=== PATIENT | female | born 1985 | race Caucasian/White ===

== ENCOUNTER 2017-07-22 06:53 | Inpatient (IN) | payer OTHER ==
[~2017-07-22] VITALS: Ht 152.4 cm; Wt 63.5 kg
[2017-07-22] MEDS ORDERED: PNV1TABL8 PO (07:42)
[2017-07-22] MEDS ORDERED: PREN-546 PO (07:42)
[2017-07-22] MEDS ORDERED: CALC-577 PO (07:42)
[2017-07-22 07:45] VITALS: BP 109/76
[2017-07-22] MEDS ORDERED: LACTATED RINGERS 1,000 ML IV SCH (07:59)
[2017-07-22] MEDS ORDERED: CITRIC ACID/SODIUM CITRATE 30 ML UDC PO SCH (08:00)
--- NOTE | 2017-07-22 09:09 | NUR ---
PATIENT HAS BEEN SCREENED AND CATEGORIZED LOW NUTRITION RISK. PATIENT WILL BE SEEN WITHIN 7 DAYS OF ADMISSION. 07/28/[address]
[2017-07-22 09:54] LABS: BASOPHILS # (AUTO) 0.1 K/uL (0.00-0.22); BASOPHILS % (AUTO) 1.6 % (0.0-2.0); EOSINOPHILS # (AUTO) 0.1 K/uL (0-0.4); EOSINOPHILS % (AUTO) 1.4 % (0.0-4.0); HEMATOCRIT 31.2 % (36-48); HEMOGLOBIN 11.3 g/dL (12.0-16.0); LYMPHOCYTES # (AUTO) 1.9 K/uL (2.5-16.5); LYMPHOCYTES % (AUTO) 33.3 % (20.5-51.1); MEAN CORPUSCULAR HEMOGLOBIN 36 pg (27-31); MEAN CORPUSCULAR HGB CONC 36 g/dL (33-37); MEAN CORPUSCULAR VOLUME 98 fL (80-94); MONOCYTES # (AUTO) 0.4 K/uL (0.8-1.0); MONOCYTES % (AUTO) 6.8 % (1.7-9.3); NEUTROPHILS # (AUTO) 3.2 K/uL (1.8-7.7); NEUTROPHILS % (AUTO) 56.9 % (42.2-75.2); PLATELET COUNT (AUTO) 129 K/uL (140-450); RED BLOOD CELL COUNT(AUTO) 3.17 MIL/uL (4.20-5.40); RED CELL DISTRIBUTION WIDTH 13.3 % (11.6-13.7); WHITE BLOOD COUNT (AUTO) 5.7 K/uL (4.8-10.8)
[2017-07-22] MEDS ORDERED: OXYTOCIN 10 UNITS/ML VIAL IV ONE (10:54)
[2017-07-22] MEDS ORDERED: ePHEDrine 50 MG/ML VIAL IV ONE (10:54)
[2017-07-22] MEDS ORDERED: BUPIVACAINE-MPF 0.75% 10 ML VIAL INJ ONE (10:54)
[2017-07-22] MEDS ORDERED: fentaNYL 0.05 MG/ML VIAL ONE (11:01)
[2017-07-22] MEDS ORDERED: MORPHINE PRES FREE 10 MG/10 ML AMP IV ONE (11:02)
[2017-07-22 11:06] LABS: APPEARANCE,URINE HAZY (CLEAR); BILIRUBIN,URINE 1+ (NEGATIVE); BLOOD, URINE NEGATIVE (NEGATIVE); COLOR,URINE YELLOW (YELLOW); LEUKOCYTE ESTERASE ,URINE 2+ (NEGATIVE); NITRITE, URINE POSITIVE (NEGATIVE); UGLUCOSE NEGATIVE (NEGATIVE)
[2017-07-22 11:17] LABS: RBC,URINE 0-5 (RARE) /HPF (0-5)
[2017-07-22] MEDS ORDERED: NALBUPHINE 10 MG/ML AMP IVP PRN (11:30)
[2017-07-22] MEDS ORDERED: ONDANSETRON 4 MG/2 ML VIAL IVP PRN ×2 (11:30)
[2017-07-22] MEDS ORDERED: diphenhydrAMINE 50 MG/ML VIAL IVP PRN (11:30)
[2017-07-22] MEDS ORDERED: KETOROLAC 60 MG/2 ML VIAL IM PRN (11:30)
[2017-07-22] MEDS ORDERED: NALOXONE 0.4 MG/ML VIAL IVP PRN ×3 (11:30)
[2017-07-22] MEDS ORDERED: ONDANSETRON 4 MG/2 ML VIAL ONE (13:22)
[2017-07-22] MEDS ORDERED: diphenhydrAMINE 50 MG/ML VIAL ONE (13:22)
[2017-07-22] MEDS ORDERED: OXYTOCIN 20 UNITS/LR PREMIX 1,000 ML IV ONE (13:23)
[2017-07-22] MEDS ORDERED: OXYTOCIN 20 UNITS in LACTATED RINGERS 1,000 ML IV SCH ×2 (14:22→14:50)
[2017-07-22] MEDS ORDERED: HYDROmorphone PFS 2 MG/ML SYR IVP PRN (14:25)
[2017-07-22] MEDS ORDERED: MEASLES, MUMPS, AND RUBELLA 1 VIAL SQVAC PRN ×2 (14:25→14:50)
[2017-07-22] MEDS ORDERED: KETOROLAC 30 MG/ML VIAL IVP PRN ×2 (14:25→14:50)
[2017-07-22] MEDS ORDERED: HYDROmorphone 1 MG/ML AMP IVP PRN (14:50)
[2017-07-22 16:28] LABS: ANION GAP 14.7 (8-16); CARBON DIOXIDE 23.7 mmol/L (21-32); CREATININE 0.5 mg/dL (0.6-1.3); POTASSIUM 3.4 mmol/L (3.5-5.1); TOTAL BILIRUBIN 1.1 mg/dL (0.0-1.0)
[2017-07-23] MEDS ORDERED: OXYTOCIN 20 UNITS/LR PREMIX 1,000 ML IV ONE (00:09)
[2017-07-23 08:28] LABS: BASOPHILS # (AUTO) 0.1 K/uL (0.00-0.22); BASOPHILS % (AUTO) 0.6 % (0.0-2.0); EOSINOPHILS # (AUTO) 0.1 K/uL (0-0.4); EOSINOPHILS % (AUTO) 0.9 % (0.0-4.0); HEMATOCRIT 29.4 % (36-48); HEMOGLOBIN 10.7 g/dL (12.0-16.0); LYMPHOCYTES # (AUTO) 1.2 K/uL (2.5-16.5); LYMPHOCYTES % (AUTO) 14.3 % (20.5-51.1); MEAN CORPUSCULAR HEMOGLOBIN 36 pg (27-31); MEAN CORPUSCULAR HGB CONC 36 g/dL (33-37); MEAN CORPUSCULAR VOLUME 98 fL (80-94); MONOCYTES # (AUTO) 0.5 K/uL (0.8-1.0); MONOCYTES % (AUTO) 5.7 % (1.7-9.3); NEUTROPHILS # (AUTO) 6.5 K/uL (1.8-7.7); NEUTROPHILS % (AUTO) 78.5 % (42.2-75.2); PLATELET COUNT (AUTO) 120 K/uL (140-450); RED CELL DISTRIBUTION WIDTH 13.6 % (11.6-13.7); WHITE BLOOD COUNT (AUTO) 8.4 K/uL (4.8-10.8)
[2017-07-23 12:28] LABS: RAPID PLASMA REAGIN NON-REACTIVE (Non Reactiv)
[2017-07-23] MEDS ORDERED: ACETAMINOPHEN 325 MG TAB PO PRN (22:00)
[2017-07-23] MEDS: ACETAMINOPHEN 325 MG TAB PO PRN (22:52)
[2017-07-24] MEDS ORDERED: SODIUM PHOSPHATE 118 ML ENEM RC PRN ×2 (08:00)
[2017-07-24] MEDS ORDERED: SIMETHICONE 80 MG TAB.CHEW PO PRN ×2 (08:00)
[2017-07-24] MEDS ORDERED: BISACODYL 5 MG TABEC PO PRN (08:00)
[2017-07-24] MEDS ORDERED: IBUPROFEN 600 MG TAB PO PRN (08:00)
[2017-07-24] MEDS ORDERED: DOCUSATE SODIUM 100 MG GELCAP PO PRN (08:00)
[2017-07-24] MEDS ORDERED: oxyCODONE/APAP 5/325 MG 1 TAB TAB PO PRN (08:00)
[2017-07-24] MEDS: BISACODYL 5 MG TABEC PO PRN (08:30)
[2017-07-24] MEDS: DOCUSATE SODIUM 100 MG GELCAP PO PRN (08:30)
[2017-07-24] MEDS: ACETAMINOPHEN 325 MG TAB PO PRN (08:34)
[2017-07-24] MEDS: IBUPROFEN 600 MG TAB PO PRN (20:48)
[2017-07-25] MEDS: BISACODYL 5 MG TABEC PO PRN (08:52)
[2017-07-25] MEDS: DOCUSATE SODIUM 100 MG GELCAP PO PRN (08:52)
[2017-07-25] MEDS: oxyCODONE/APAP 5/325 MG 1 TAB TAB PO PRN (15:35)
[2017-07-25] MEDS: IBUPROFEN 600 MG TAB PO PRN (20:18)
[2017-07-26] MEDS ORDERED: FERR325E14 PO (10:32)
[2017-07-26] MEDS ORDERED: IBUP-1842 PO (10:33)
[2017-07-26] MEDS: oxyCODONE/APAP 5/325 MG 1 TAB TAB PO PRN (14:43)
== END 2017-07-26 15:50 | disposition home or self-care (01) | DRG 540 ==
LOC: MFCC 06:53 → MLD 07:23 → MFCC 12:21
PROVIDERS: ADMIT Obstetrics & Gynecology; ATTEND Obstetrics & Gynecology
PROC: 3E0234Z Introduction of Serum, Toxoid and Vaccine into Muscle, Percutaneous Approach (ICD-10-PCS; 2017-07-24)
PROC: 10D00Z1 Extraction of Products of Conception, Low, Open Approach (ICD-10-PCS; principal; 2017-07-26)
DX: O34.211 Maternal care for low transverse scar from previous cesarean delivery (principal); O69.1XX0 Labor and delivery complicated by cord around neck, with compression, not applicable or unspecified; Z23 Encounter for immunization; Z37.0 Single live birth; Z3A.38 38 weeks gestation of pregnancy
CPT/HCPCS: 36415; 80053; 81001; 85025; 86592; 86762; 86886; 86900; 86901; 87081; 87086; 87186; 87340; 90715; J0690; J1200; J2270; J2405; J2590; J3010; J3490; J7060; J7120